=== PATIENT | female | born 1985 | race Two or more races ===

== ENCOUNTER 2017-05-02 07:18 | Day surgery (SDC) | payer BC, OTHER ==
[~2017-05-02] VITALS: Ht 170.2 cm; Wt 80.2 kg
[~2017-05-02 07:18] MED LIST: FERR325T20 PO; PREN1TAB60 PO
[2017-05-02] MEDS ORDERED: MORPHINE SULFATE 4 MG/ML, 1ML ONE ×2 (07:35→09:19)
[2017-05-02] MEDS ORDERED: ONDANSETRON 2MG/ML, 2ML ONE ×2 (07:36→10:34)
[2017-05-02] MEDS: MORPHINE SULFATE 4 MG/ML, 1ML IVPush PRN ×2 (07:46→09:20)
[2017-05-02] MEDS ORDERED: SODIUM CHLORIDE FLUSH 10ML SYR IVF ONE (08:00)
[2017-05-02] MEDS ORDERED: ONDANSETRON 2MG/ML, 2ML IVPush ONE (08:00)
[2017-05-02] MEDS ORDERED: SODIUM CHLORIDE 0.9% 1,000ML IVBOLUS ONE ×3 (08:00→09:30)
[2017-05-02 08:10] LABS: HEMATOCRIT 38.1 % (34.6-47.8); HEMOGLOBIN 12.6 g/dL (11.7-16.4)
[2017-05-02 08:29] LABS: ASPARTATE AMINO TRANSFERASE 17 U/L (15-37); BLOOD UREA NITROGEN 13 mg/dL (7-18)
[2017-05-02] MEDS ORDERED: CEFOTETAN PMX 1GM/50ML 50 ML IV ONE (09:30)
[2017-05-02 09:55] LABS: HCG UR OBC PASS
[2017-05-02] MEDS ORDERED: CEFOTETAN PMX 1GM/50ML 50 ML ONE (10:10)
[2017-05-02] MEDS ORDERED: BUPIVACAINE/PF 0.5% ONE (10:11)
[2017-05-02] MEDS ORDERED: EPINEPHRINE 1 MG/ML, 1ML ONE (10:11)
[2017-05-02] MEDS ORDERED: MIDAZOLAM 1 MG/ML, 2ML ONE (10:28)
[2017-05-02] MEDS ORDERED: FENTANYL PF 250 MCG/5ML ONE (10:28)
[2017-05-02] MEDS ORDERED: DEXAMETHASONE 4 MG/ML, 1ML ONE (10:34)
[2017-05-02] MEDS ORDERED: GLYCOPYRROLATE 0.2MG/1ML ONE (10:34)
[2017-05-02] MEDS ORDERED: PROPOFOL 10 MG/ML, 20ML ONE (10:34)
[2017-05-02] MEDS ORDERED: NEOSTIGMINE 1 MG/ML, 10ML ONE (10:34)
[2017-05-02] MEDS ORDERED: METOCLOPRAMIDE 5 MG/ML, 2ML ONE (10:34)
[2017-05-02] MEDS ORDERED: KETOROLAC 30 MG/1 ML ONE (10:34)
[2017-05-02] MEDS ORDERED: ROCURONIUM 10 MG/ML ONE (10:34)
[2017-05-02] MEDS ORDERED: BUPIVACAINE/PF-EPI 0.5% 1:200K INFIL ONE (10:56)
[2017-05-02] MEDS ORDERED: LACTATED RINGERS 1,000 ML IV SCH (11:21)
[2017-05-02] MEDS ORDERED: PROMETHAZINE 25 MG/ML, 1ML IV PRN (11:30)
[2017-05-02] MEDS ORDERED: MIDAZOLAM 1 MG/ML, 2ML IV PRN (11:30)
[2017-05-02] MEDS ORDERED: HYDROcodone/APAP 5/325 TABLET PO PRN (11:30)
[2017-05-02] MEDS ORDERED: LABETALOL 5MG/ML, 20ML IV PRN (11:30)
[2017-05-02] MEDS ORDERED: ACETAMINOPHEN 325 MG TABLET PO PRN (11:30)
[2017-05-02] MEDS ORDERED: MEPERIDINE/PF 25MG/0.5ML IVPush PRN (11:30)
[2017-05-02] MEDS ORDERED: ONDANSETRON 2MG/ML, 2ML IVPush PRN ×2 (11:30)
[2017-05-02] MEDS ORDERED: hydrALAzine 20 MG/ML, 1ML IV PRN (11:30)
[2017-05-02] MEDS ORDERED: FENTANYL PF 100 MCG/2ML IV PRN (11:30)
[2017-05-02] MEDS ORDERED: HYDROmorphone 2 MG/ML, 1ML IVPush PRN (11:30)
[2017-05-02] MEDS ORDERED: HYDROmorphone 1 MG/ML, 1ML IV PRN (11:30)
[2017-05-02] MEDS ORDERED: OXYcodone 5 MG/5 ML ORAL.SOL UDC PO PRN (11:30)
[2017-05-02] MEDS ORDERED: ALBUTEROL/IPRATROPIUM 2.5MG/0.5MG, 3 ML NPPB PRN (11:30)
[2017-05-02] MEDS ORDERED: MEPERIDINE/PF 25MG/0.5ML ONE (12:01)
[2017-05-02 12:45] VITALS: BP 112/61
[2017-05-02] MEDS ORDERED: CEFTRIAXONE 1,000 MG IVPB SCH (15:30)
[2017-05-02] MEDS ORDERED: CEFTRIAXONE PMX 1GM/50ML 50 ML IV SCH (16:00)
[2017-05-02] MEDS ORDERED: HYDR-3138 PO (19:00)
[2017-05-02 19:47] VITALS: BP 126/73
== END 2017-05-02 20:00 | disposition home or self-care (01) ==
LOC: ED 08:13 → UNDOADMIN 10:08 → SDC 10:08 → EDIP 10:08 → 4NOR 12:33 → EDIP 12:33 → UNDODISIN 20:00 → SDC 20:00
PROVIDERS: ATTEND Thoracic Surgery (Cardiothoracic Vascular Surgery)
DX: K80.12 Calculus of gallbladder with acute and chronic cholecystitis without obstruction (principal)
CPT/HCPCS: 36415; 47562; 71010; 76700; 80053; 81001; 81025; 83605; 83690; 84145; 85025; 87040; 87086; 88304; 93005; 96361; 96374; 96375; 96376; 99285; J0171; J0696; J1100; J1885; J2175; J2250; J2405; J2704; J2710; J2765; J3010; J3490; J7030; J7120; S0074